=== PATIENT | male | born 1980 | race Caucasian/White ===

== ENCOUNTER → 2023-03-27 | Outpatient (CLI) | payer BC ==
--- NOTE | 2023-03-27 16:09 | US ---
EXAMINATION TYPE: US st tissue neck DATE OF EXAM: 03/27/2023 COMPARISON: NONE CLINICAL INDICATION: Male, 42 years old with history of R22.0 LOCALIZED SWELLING, MASS AND LUMP, HEAD ; 2 palpables x two weeks located midline anterior neck inferior to chin. TECHNIQUE: Multiple sonographic images taken. FINDINGS: Patients area of concern scanned. 1- hypoechoic area seen subdermal = 0.5 x 0.6 x 0.3 cm 2- lymph node appearing with short axis = 0.5 cm and cortical thickness= 1.2 mm IMPRESSION: Upper midline neck scanned at the area of patient's concern. The more superior lesion measures 6 mm a nd seems to partially involve the skin surface. This suggests some type of cutaneous lesion. The area just below has the appearance of a small 6 mm lymph node located in the subcutaneous adipose layer a nd may be reactive/post inflammatory. Clinical follow-up recommended. If any progressive enlargement, the area can be rescanned.
== END | disposition home or self-care (01) ==
LOC: RADUSWWP 15:27
PROVIDERS: ATTEND Family Medicine
DX: R22.0 Localized swelling, mass and lump, head (principal)
CPT/HCPCS: 76536